=== PATIENT | male | born 1945 | race Caucasian/White ===

== ENCOUNTER → 2016-11-08 | Outpatient (CLI) | payer MEDICARE, OTHER | LOC: KOH-I 12:37 | DX: J32.0 Chronic maxillary sinusitis (principal); J34.89 Other specified disorders of nose and nasal sinuses | CPT/HCPCS: 70486 ==

== ENCOUNTER → 2020-10-06 | Outpatient (CLI) | payer MEDICARE ==
[~2020-10-06] MED LIST: BACTROBAN OINT22 GM EXT; KEFLEX CAP 500500 MG PO; LODINE CAP 300300 MG PO; NORCO 5-325 TA1 EACH PO
== END ==
LOC: US 08:43
DX: Z13.6 Encounter for screening for cardiovascular disorders (principal); I25.10 Atherosclerotic heart disease of native coronary artery without angina pectoris; I10 Essential (primary) hypertension; Z82.49 Family history of ischemic heart disease and other diseases of the circulatory system
CPT/HCPCS: 76706

== ENCOUNTER → 2021-12-25 | Outpatient (CLI) | payer MEDICARE | LOC: KOH-I 08:48 | DX: M54.50 Low back pain, unspecified (principal); M54.10 Radiculopathy, site unspecified; M47.816 Spondylosis without myelopathy or radiculopathy, lumbar region; M47.817 Spondylosis without myelopathy or radiculopathy, lumbosacral region; M48.07 Spinal stenosis, lumbosacral region; M48.061 Spinal stenosis, lumbar region without neurogenic claudication; M51.86 Other intervertebral disc disorders, lumbar region; M51.87 Other intervertebral disc disorders, lumbosacral region | CPT/HCPCS: 72148 ==

== ENCOUNTER 2022-01-14 10:57 | Emergency (ER) | payer MEDICARE | END 2022-01-14 12:05 | disposition home or self-care (01) | LOC: ER1 10:57 | DX: S80.852A Superficial foreign body, left lower leg, initial encounter (principal); W45.8XXA Other foreign body or object entering through skin, initial encounter | CPT/HCPCS: 10120; 99283 ==

== ENCOUNTER → 2022-01-14 | Outpatient (CLI) | payer MEDICARE | LOC: KOH-I 08:28 | DX: M51.16 Intervertebral disc disorders with radiculopathy, lumbar region (principal) | CPT/HCPCS: 72131 ==

== ENCOUNTER → 2022-02-03 | Outpatient (CLI) | payer MEDICARE ==
[~2022-02-03] MED LIST changes: +CLOPIDOGREL75 MG PO; +ELAVIL 50 MG TA50 MG PO; +EUTHYROX25 MCG PO; +FLOMAX 0.4 MG0.4 MG PO; +GLUCOPHAGE 850850 MG PO; +HYDROCHLOROTHIA25 MG PO; +LIPITOR40 MG PO; +LISINOPRIL10 MG PO; +LOPRESSOR 25 MG25 MG PO; +NORVASC10 MG PO; +PREVACID30 MG PO; +TESTOSTERO200 MG/1 M IM; +ULTRAM50 MG PO
[2022-02-03 11:07] LABS: HEMOGLOBIN 12.2 gm/dl (14.0-17.5); RED BLOOD COUNT 4.3 M/UL (4.20-5.50); WHITE BLOOD COUNT 4.2 K/UL (4.5-11.0)
[2022-02-03 11:35] LABS: BUN/CREATININE RATIO 16 (0-10)
== END ==
LOC: OPSV2 10:00 → EDSTATUS 10:00 → OPSV2 10:18
PROVIDERS: Orthopaedic Surgery
DX: Z01.818 Encounter for other preprocedural examination (principal); M48.061 Spinal stenosis, lumbar region without neurogenic claudication; M54.16 Radiculopathy, lumbar region; M71.38 Other bursal cyst, other site; J43.9 Emphysema, unspecified
CPT/HCPCS: 71046; 80048; 81001; 85027; 87081

== ENCOUNTER → 2022-02-14 | Outpatient (CLI) | payer MEDICARE ==
[~2022-02-14] MED LIST changes: +ASPIRIN EC325 MG PO; +METHOCARBAMOL500 MG PO; +NEURONTIN300 MG PO
[2022-02-14 14:02] LABS: BUN/CREATININE RATIO 20 (0-10)
== END ==
LOC: LAB 12:47
PROVIDERS: Orthopaedic Surgery
DX: Z01.812 Encounter for preprocedural laboratory examination (principal); M48.061 Spinal stenosis, lumbar region without neurogenic claudication; M54.16 Radiculopathy, lumbar region; M71.30 Other bursal cyst, unspecified site
CPT/HCPCS: 80048; 85610; 85730; 86850; 86900; 86901; 86920; P9016

== ENCOUNTER 2022-02-15 05:28 | Inpatient (IN) | payer MEDICARE ==
[~2022-02-15] VITALS: Ht 180.3 cm; Wt 74.8 kg
[~2022-02-15 05:28] MED LIST changes: -ASPIRIN EC325 MG PO; -METHOCARBAMOL500 MG PO; -NEURONTIN300 MG PO
[2022-02-15 12:43] LABS: HEMOGLOBIN 8.8 gm/dl (14.0-17.5)
[2022-02-15 15:20] LABS: BUN/CREATININE RATIO 17 (0-10)
[2022-02-15 15:23] LABS: HEMOGLOBIN 9.1 gm/dl (14.0-17.5); RED BLOOD COUNT 3.18 M/UL (4.20-5.50); WHITE BLOOD COUNT 6.7 K/UL (4.5-11.0)
[2022-02-15] MEDS ORDERED: METHOCARBAMOL500 MG PO (16:03)
[2022-02-15] MEDS ORDERED: NEURONTIN300 MG PO (16:03)
[2022-02-15] MEDS ORDERED: ASPIRIN EC325 MG PO (16:04)
[2022-02-16 05:12] LABS: HEMOGLOBIN 10.2 gm/dl (14.0-17.5)
[2022-02-16 05:15] LABS: RED BLOOD COUNT 3.56 M/UL (4.20-5.50); WHITE BLOOD COUNT 10.8 K/UL (4.5-11.0)
[2022-02-16 05:34] LABS: BUN/CREATININE RATIO 20 (0-10)
[2022-02-16 17:06] LABS: HEMOGLOBIN 10.4 gm/dl (14.0-17.5)
[2022-02-17 04:57] LABS: HEMOGLOBIN 10.6 gm/dl (14.0-17.5); RED BLOOD COUNT 3.72 M/UL (4.20-5.50); WHITE BLOOD COUNT 8.2 K/UL (4.5-11.0)
[2022-02-17 05:27] LABS: BUN/CREATININE RATIO 16 (0-10)
[2022-02-18 04:16] LABS: HEMOGLOBIN 10.5 gm/dl (14.0-17.5); RED BLOOD COUNT 3.74 M/UL (4.20-5.50)
[2022-02-18 05:22] LABS: BUN/CREATININE RATIO 19 (0-10)
[2022-02-19 06:10] LABS: HEMOGLOBIN 10.3 gm/dl (14.0-17.5); RED BLOOD COUNT 3.61 M/UL (4.20-5.50); WHITE BLOOD COUNT 4.6 K/UL (4.5-11.0)
[2022-02-19 06:50] LABS: BUN/CREATININE RATIO 23 (0-10)
[2022-02-20 01:42] LABS: RED BLOOD COUNT 3.94 M/UL (4.20-5.50); WHITE BLOOD COUNT 3.7 K/UL (4.5-11.0)
[2022-02-20 01:59] LABS: BUN/CREATININE RATIO 26 (0-10)
[2022-02-21 06:10] LABS: RED BLOOD COUNT 3.57 M/UL (4.20-5.50); WHITE BLOOD COUNT 4.4 K/UL (4.5-11.0)
[2022-02-21 06:39] LABS: BUN/CREATININE RATIO 27 (0-10)
[2022-02-22 02:06] LABS: HEMOGLOBIN 9.7 gm/dl (14.0-17.5); RED BLOOD COUNT 3.44 M/UL (4.20-5.50); WHITE BLOOD COUNT 4.6 K/UL (4.5-11.0)
[2022-02-22 02:20] LABS: BUN/CREATININE RATIO 33 (0-10)
[2022-02-22] MEDS ORDERED: ROXICODONE5 MG PO (13:51)
[2022-02-22] MEDS ORDERED: LOW DOSE ASPIRI81 MG PO (13:52)
== END 2022-02-22 15:15 | disposition home or self-care (01) | DRG 459 ==
LOC: OR 05:28 → CCU 15:24 → PROG CARE 02-19 16:43
PROVIDERS: Internal Medicine; ADMIT Orthopaedic Surgery
PROC: 0SG3071 Fusion of Lumbosacral Joint with Autologous Tissue Substitute, Posterior Approach, Posterior Column, Open Approach (ICD-10-PCS; 2022-02-15)
PROC: 01NB0ZZ Release Lumbar Nerve, Open Approach (ICD-10-PCS; 2022-02-15)
PROC: 01NR0ZZ Release Sacral Nerve, Open Approach (ICD-10-PCS; 2022-02-15)
PROC: 0SB20ZZ Excision of Lumbar Vertebral Disc, Open Approach (ICD-10-PCS; 2022-02-15)
PROC: 0SG804Z Fusion of Left Sacroiliac Joint with Internal Fixation Device, Open Approach (ICD-10-PCS; 2022-02-15)
PROC: 0SG704Z Fusion of Right Sacroiliac Joint with Internal Fixation Device, Open Approach (ICD-10-PCS; 2022-02-15)
PROC: 30233N1 Transfusion of Nonautologous Red Blood Cells into Peripheral Vein, Percutaneous Approach (ICD-10-PCS; 2022-02-15)
PROC: 8E0ZXY6 Isolation (ICD-10-PCS; 2022-02-15)
PROC: 4A11X4G Monitoring of Peripheral Nervous Electrical Activity, Intraoperative, External Approach (ICD-10-PCS; 2022-02-15)
PROC: 0SB40ZZ Excision of Lumbosacral Disc, Open Approach (ICD-10-PCS; principal; 2022-02-15 07:30)
PROC: 0SG1071 Fusion of 2 or more Lumbar Vertebral Joints with Autologous Tissue Substitute, Posterior Approach, Posterior Column, Open Approach (ICD-10-PCS; 2022-02-15 07:30)
PROC: 01NB0ZZ Release Lumbar Nerve, Open Approach (ICD-10-PCS; 2022-02-15 07:30)
DX: M48.061 Spinal stenosis, lumbar region without neurogenic claudication (principal); U07.1 COVID-19; E87.1 Hypo-osmolality and hyponatremia; J98.11 Atelectasis; M47.16 Other spondylosis with myelopathy, lumbar region; R09.02 Hypoxemia; M47.26 Other spondylosis with radiculopathy, lumbar region; M71.38 Other bursal cyst, other site; I11.9 Hypertensive heart disease without heart failure; Z96.652 Presence of left artificial knee joint; M79.10 Myalgia, unspecified site; E11.9 Type 2 diabetes mellitus without complications; E78.5 Hyperlipidemia, unspecified; E87.6 Hypokalemia; R26.81 Unsteadiness on feet; G89.29 Other chronic pain; M54.9 Dorsalgia, unspecified; I25.10 Atherosclerotic heart disease of native coronary artery without angina pectoris; I48.91 Unspecified atrial fibrillation; N40.0 Benign prostatic hyperplasia without lower urinary tract symptoms; K59.00 Constipation, unspecified; Z79.01 Long term (current) use of anticoagulants; Z79.4 Long term (current) use of insulin; Z79.82 Long term (current) use of aspirin; Z90.49 Acquired absence of other specified parts of digestive tract; Z82.49 Family history of ischemic heart disease and other diseases of the circulatory system; Z83.3 Family history of diabetes mellitus; Z95.1 Presence of aortocoronary bypass graft; Z98.890 Other specified postprocedural states; Z85.828 Personal history of other malignant neoplasm of skin
CPT/HCPCS: 36415; 71045; 72100; 72110; 76000; 80048; 80053; 81001; 82962; 83036; 83540; 83550; 83735; 84100; 84132; 85014; 85018; 85025; 85027; 87040; 93005; 97116-GP-CQ; 97161; 97165; 97530; 97530-GP-CQ; 97535; C1713; C1762; C1776; J0690; J1040; J1100; J1170; J2001; J2250; J2270; J2370; J2405; J2704; J3010; J3370; J3475; J7040; P9016; P9045; Q9967; U0002